=== PATIENT | male | born 1950 | race Caucasian/White ===

== ENCOUNTER 2017-08-15 11:38 | Outpatient (CLI) | payer MEDICARE, OTHER ==
[2017-08-15 12:03] LABS: BASOPHILS # (AUTO) 0.1 10^3/uL (0.0-0.1); BASOPHILS % (AUTO) 0.9 %; EOSINOPHILS # (AUTO) 0.1 10^3/uL (0.0-0.7); EOSINOPHILS % (AUTO) 0.6 %; HCT - HEMATOCRIT 47.7 % (42.0-52.0); HGB - HEMOGLOBIN 16.4 g/dL (14.0-18.0); LYMPHOCYTES # (AUTO) 2.2 10^3/uL (1.5-3.5); LYMPHOCYTES % (AUTO) 23.7 %; MEAN CORPUSCULAR HEMOGLOBIN 28.7 pg (27.0-31.0); MEAN CORPUSCULAR HGB CONC 34.4 g/dL (32.0-36.0); MEAN CORPUSCULAR VOLUME 83.5 fL (80.0-94.0); MEAN PLATELET VOLUME 7.5 fL (7.4-11.4); MONOCYTES # (AUTO) 0.5 10^3/uL (0.0-1.0); MONOCYTES % (AUTO) 5.5 %; NEUTROPHILS # (AUTO) 6.4 10^3/uL (1.5-6.6); NEUTROPHILS % (AUTO) 69.3 %; NUCLEATED RED BLOOD CELLS AUTO 0.1 /100WBC; RED BLOOD COUNT 5.72 10^6/uL (4.70-6.10); RED CELL DISTRIBUTION WIDTH 13.6 % (12.0-15.0); UNCORRECTED WHITE BLOOD COUNT 9.3 x10^3/uL; WHITE BLOOD COUNT 9.3 x10^3/uL (4.8-10.8)
[2017-08-15 13:08] LABS: ALBUMIN/GLOBULIN RATIO 1.4 (1.0-2.2); BILIRUBIN,TOTAL 1.3 mg/dL (0.2-1.0); BUN - BLOOD UREA NITROGEN 17 mg/dL (6-20); CALCIUM 9.5 mg/dL (8.5-10.3); CARBON DIOXIDE - CO2 27 mmol/L (21-32); CHLORIDE 103 mmol/L (101-111); GFR - MDRD 75 (>89); GLUCOSE 100 mg/dL (70-100); POTASSIUM 4.7 mmol/L (3.5-5.0); SODIUM 141 mmol/L (135-145); TOTAL PROTEIN 7.9 g/dL (6.7-8.2)
== END 2017-08-15 11:39 | disposition home or self-care (01) ==
LOC: LAB 11:38
PROVIDERS: ATTEND Orthopaedic Surgery
DX: M85.38 Osteitis condensans, other site (principal); M25.559 Pain in unspecified hip
CPT/HCPCS: 36415; 80053; 85025; 85651; 86140

== ENCOUNTER 2021-04-13 18:27 | Outpatient (CLI) | payer MEDICARE, OTHER ==
[2021-04-13 18:49] LABS: BASOPHILS % (AUTO) 0.4 %; EOSINOPHILS # (AUTO) 0.1 10^3/uL (0.0-0.7); EOSINOPHILS % (AUTO) 1.2 %; HCT - HEMATOCRIT 48.6 % (42.0-52.0); HGB - HEMOGLOBIN 16.4 g/dL (14.0-18.0); LYMPHOCYTES # (AUTO) 3.3 10^3/uL (1.5-3.5); LYMPHOCYTES % (AUTO) 32.1 %; MEAN CORPUSCULAR HEMOGLOBIN 29.3 pg (27.0-31.0); MEAN CORPUSCULAR HGB CONC 33.7 g/dL (32.0-36.0); MEAN CORPUSCULAR VOLUME 86.9 fL (80.0-94.0); MEAN PLATELET VOLUME 9.9 fL (7.4-11.4); MONOCYTES # (AUTO) 0.6 10^3/uL (0.0-1.0); MONOCYTES % (AUTO) 6.1 %; NEUTROPHILS # (AUTO) 6.2 10^3/uL (1.5-6.6); PLT - PLATELET COUNT 214 10^3/uL (130-450); RED BLOOD COUNT 5.59 10^6/uL (4.70-6.10); RED CELL DISTRIBUTION WIDTH 13.2 % (12.0-15.0); WHITE BLOOD COUNT 10.3 x10^3/uL (4.8-10.8)
[2021-04-13 19:12] LABS: ALBUMIN 4.7 g/dL (3.2-5.5); ALBUMIN/GLOBULIN RATIO 1.7 (1.0-2.2); BILIRUBIN,TOTAL 0.9 mg/dL (0.2-1.0); CALCIUM 9.1 mg/dL (8.5-10.3); POTASSIUM 4.8 mmol/L (3.5-5.0); TOTAL PROTEIN 7.4 g/dL (6.7-8.2); URIC ACID 4.8 mg/dL (2.6-7.2)
[2021-04-13 19:51] LABS: CRP - C-REACTIVE PROTEIN 3.2 mg/dL (0-1.0)
--- NOTE | 2021-04-14 07:01 | Ultrasound Report ---
PROCEDURE: Duplex Ext Veins Left INDICATIONS: SWOLLEN CALF, MASS LUMP TECHNIQUE: Real-time imaging, as well as color and pulse Doppler interrogation, were performed of the lower extr emity deep veins from the inguinal ligament to the popliteal fossa. COMPARISON: None. FINDINGS: The deep veins are normally compressible, and free of intraluminal thrombus. Color and pu lse Doppler demonstrate normal phasic intraluminal flow. There is normal augmentation response to di stal compression maneuver. IMPRESSION: No evidence of deep vein thrombosis involving the left lower extremity. Reviewed by: Hawa Vo MD, PhD on 04/14/2021 6:59 AM PDT Approved by: Hawa Vo MD, PhD on 04/14/2021 6:59 AM PDT Station ID: [id number]
== END 2021-04-13 18:28 | disposition home or self-care (01) ==
LOC: DI 18:27
PROVIDERS: ATTEND Nurse Practitioner Family
DX: R22.42 Localized swelling, mass and lump, left lower limb (principal)
CPT/HCPCS: 36415; 80053; 84550; 85025; 85651; 86140

== ENCOUNTER 2021-04-13 18:35 | Outpatient (CLI) | payer MEDICARE, OTHER ==
--- NOTE | 2021-04-14 10:47 | XRAY Report ---
PROCEDURE: Ankle 3 View LT INDICATIONS: LOCALIZED SWELLING, MASS AND LUMP TECHNIQUE: 3 views of the ankle were acquired. COMPARISON: None. FINDINGS: No acute fracture. Plantar calcaneal spur. Anatomic alignment is present. Soft tissues unremarkable. IMPRESSION: Large plantar calcaneal spur. If the patient's pain or other symptoms persist, consider further evaluation with MRI. Reviewed by: Avni Vasquez MD on 04/14/2021 10:46 AM PDT Approved by: Avni Vasquez MD on 04/14/2021 10:46 AM PDT Station ID: [id number]
== END 2021-04-13 18:36 | disposition home or self-care (01) ==
LOC: DI 18:35
PROVIDERS: ATTEND Nurse Practitioner Family
DX: M77.32 Calcaneal spur, left foot (principal); R22.42 Localized swelling, mass and lump, left lower limb
CPT/HCPCS: 36415; 80053; 84550; 85025; 85651; 86140

== ENCOUNTER 2021-04-27 11:49 | Outpatient (CLI) | payer MEDICARE, OTHER ==
[2021-04-27] MEDS ORDERED: IOVERSOL 320 100 ML VIAL IVP ONE ×2 (11:52→12:54)
--- NOTE | 2021-04-27 15:35 | CT Report ---
PROCEDURE: LOWER EXTREMITY W - LT INDICATIONS: SWOLLEN CALF TECHNIQUE: Noncontrast 3 mm axial sections acquired of the left lower leg, with coronal and sagittal reformats. COMPARISON: None. FINDINGS: Image quality: Excellent. Bones: Alignment of left lower leg is anatomic. No fracture or dislocation is seen. No suspicious in traosseous lesion. Mild tricompartmental osteoarthritis is seen in left knee more prominent in medial femoral tibial compartment. No bony erosive changes are seen. No periosteal reaction. Soft tissues: Very mild subcutaneous fat stranding predominantly involving mid to distal lower leg i s seen. No discrete drainable fluid collection is noted. No gross muscle or tendon abnormality. Plant ar fascia is intact. Achilles tendon is intact. No abnormal soft tissue calcifications. IMPRESSION: 1. Suggestion of mild cellulitis in left lower leg. No discrete abscess collection. No other muscle o r tendon abnormality. No abnormal soft tissue calcifications. 2. Mild tricompartmental osteoarthritis in left knee. No lower leg fracture or dislocation. No eviden ce of osteomyelitis. Reviewed by: Cuba Marte MD on 04/27/2021 3:34 PM PDT Approved by: Cuba Marte MD on 04/27/2021 3:34 PM PDT Station ID: [id number]
== END 2021-04-27 11:50 | disposition home or self-care (01) ==
LOC: DI 11:49
PROVIDERS: ATTEND Nurse Practitioner Family
DX: M17.12 Unilateral primary osteoarthritis, left knee (principal); R93.6 Abnormal findings on diagnostic imaging of limbs; R93.89 Abnormal findings on diagnostic imaging of other specified body structures
CPT/HCPCS: 73701; Q9967